=== PATIENT | male | born 1970 | race Asian ===

== ENCOUNTER 2018-10-18 20:40 | Inpatient (IN) | payer MEDICAID ==
[2018-10-18] MEDS ORDERED: Sodium Chloride 0.9% 1,000 ML IV ONE ×2 (20:48→21:48)
--- NOTE | 2018-10-18 20:56 | ED Physician Chart ---
ED Chief Complaint/HPI - Patient Information Date Seen:: 10/18/18 Time Seen:: 20:40 Chief Complaint:: Palpitations History of Present Illness:: onset x one day of palpitations, anxiousness, and nervousness; pt denies trauma , LOC, ALOC, AMS, H/As, S/T, neck pain, cough, C/P, SOB, Abd. Pain, A/N/V/D/C, fever, chills, or urinary s/s Allergies:: Allergies Allergy/AdvReac Type Severity Reaction Status Date / Time No Known Allergies Allergy Verified 10/18/18 20:50 Historian:: Patient, EMS Review:: Nurse's Note Reviewed, Old Chart Reviewed, EMS run form Reviewed ED Review of Systems - Review of Systems General/Constitutional: No fever, No chills, No weight loss, No weakness, No diaphoresis, No edema, No loss of appetite Skin: No skin lesions, No rash, No bruising Head: No headache, No light-headedness Eyes: No loss of vision, No pain, No diplopia ENT: No earache, No nasal drainage, No sore throat, No tinnitus Neck: No neck pain, No swelling, No thyromegaly, No stiffness, No mass noted Cardio Vascular: No chest pain, Palpitations, No PND, No orthopnea, No edema Pulmonary: No SOB, No cough, No sputum, No wheezing GI: No nausea, No vomiting, No diarrhea, No pain, No melena, No hematochezia, No constipation, No hematemesis G/U: No dysuria, No frequency, No hematuria, No nacturia Musculoskeletal: No bone or joint pain, No back pain, No muscle pain Endocrine: No polyuria, No polydipsia Psychiatric: Prior psych history, No depression, Anxiety, No suicidal ideation, No homicidal ideation, No auditory hallucination, No visual hallucination Hematopoietic: No bruising, No lymphadenopathy Allergic/Immuno: No urticaria, No angioedema Neurological: No syncope, No focal symptoms, No weakness, No paresthesia, No headache, No seizure, No dizziness, No confusion, No vertigo ED Past Medical History - Past Medical History Obtainable: Yes Past Medical History: No significant medical hx Family History: HTN Social History: Non Smoker, No Alcohol, Illicit Drug Use, Single, Homeless Surgical History: None Psychiatricy History: Bipolar Medication: Reviewed Family Medical History - Family Member Father History Unknown: Yes ED Physical Exam - Physical Examination General/Constitutional: Awake, Well-developed, well-nourished, Alert, No distress, GCS 15, Non-toxic appearing, Ambulatory Head: Atraumatic Eyes: Lids, conjuctiva normal, PERRL, EOMI Skin: Nl inspection, No rash, No skin lesions, No ecchymosis, Well hydrated, No lymphadenopathy ENMT: External ears, nose nl, TM canals nl, Nasal exam nl, Lips, teeth, gums nl , Oropharynx nl, Tonsils nl Neck: Nontender, Full ROM w/o pain, No JVD, No nuchal rigidity, No bruit, No mass, No stridor Respiratory: Nl effort/Exclusion, Clear to Auscultation, No Wheeze/Rhonchi/Rales Cardio Vascular: RRR, No murmur, gallop, rubs, NL S1 S2, Carotid/Femoral/Distal pulses equal bilaterally GI: No tenderness/rebounding/guarding, No organomegaly, No hernia, Normal BS's, Nondistended, No mass/bruits, No McBurney tenderness : No CVA tenderness Extremities: No tenderness or effusion, Full ROM, normal strength in all extremities, No edema, Normal digits & nails Neuro/Psych: Alert/oriented, DTR's symmetric, Normal sensory exam, Normal motor strength, Judgement/insight normal, Mood normal, Normal gait, No focal deficits Misc: Normal back, No paraspinal tenderness ED Labs/Radiology/EKG Results - Lab Results Results: Laboratory Tests 10/18/18 20:48 POC Glucose 148 H Comments:: Reviewed - Radiology Results Comments:: NAD - EKG Interpretations EKG Time:: 22:12 Rate & Rhythm: 124; ST Comments:: T-Wave inversions; non-specific st-t changes ED Septic Shock - . Is Septic Shock (SBP<90, OR Lactate>4 mmol\L) present?: No ED Reassessment (Disposition) - Reassessment Reassessment Condition:: Improved - Diagnosis Diagnosis:: Anxiety Reaction; Dehydration; Palpitations; Tachycardia; Myocardial Ischemia; Substance Abuse; Cardiac Arrythmias; Lactic Acidosis; UTI; Sepsis; Leukocytosis - Aftercare/Follow up Instructions Aftercare/Follow-Up Instructions:: Counseled pt regarding lab results/diagnosis & need follow up, Counseled pt & family regarding lab results/diagnosis & need follow up - Patient Disposition Discharge/Transfer:: Acute Care w/in this hosp Accepting Physician:: Dr. Johnson Time Called:: 2199 Time Responded:: 22:00 Admitted to:: ICU Spoke to:: Dr. Johnson Admitting Medical Physician:: Dr. Johnson Condition at Disposition:: Stable, Improved
[2018-10-18] MEDS ORDERED: Aspirin 81mg Chewable Tab PO STA (21:00)
[2018-10-18 21:08] LABS: BASOPHILE ABSOLUTE 0.1 Th/cumm (0-0.2); EOSINOPHILE ABSOLUTE 0.1 Th/cmm (0.1-0.4); HEMATOCRIT 42.3 % (41.0-60); HEMOGLOBIN 13.7 gm/dL (12-16); LYMPHOCYTE ABSOLUTE 0.8 Th/cmm (1.5-3.0); MEAN CELL VOLUME 77.9 fl (80-99); MEAN CORPUSCULAR HEMOGLOBIN 25.2 pg (26.0-30.0); MEAN CORPUSCULAR HGB CONC 32.3 pg (28.0-36.0); MEAN PLATELET VOLUME 6.7 fl; MONOCYTE ABSOLUTE 0.4 Th/cmm (0.3-1.0); NEUTROPHILE ABSOLUTE 18.1 Th/cmm (1.8-8.0); PLATELET COUNT 429 Th/cmm (150-400); RED BLOOD COUNT 5.43 Mil/cmm (4.30-5.70); RED CELL DISTRIBUTION WIDTH 13.2 % (11.5-20.0)
[2018-10-18] MEDS ORDERED: Aspirin 81mg Chewable Tab ONE (21:11)
[2018-10-18 21:15] LABS: WHITE BLOOD COUNT 19.5 Th/cmm (4.8-10.8)
[2018-10-18 21:22] LABS: INR 0.99 (0.5-1.4); PROTHROMBIN TIME (TEST) 10.3 SECONDS (9.5-11.5)
[2018-10-18 21:25] LABS: BAND NEUTROPHILE 4 % (0-10); LYMPHOCYTE 3 % (20-50); MONOCYTE 3 % (2-10); NEUTROPHILS 90 % (40-80)
[2018-10-18 21:28] LABS: ALB/GLOB RATIO 1.5 (1.0-1.8); ALBUMIN 4.8 gm/dL (4.2-5.5); ANION GAP 21.6 (7.0-16.0); BILIRUBIN,TOTAL 0.6 mg/dL (0.3-1.0); CALCIUM SERUM 10.3 mg/dL (8.6-10.3); CARBON DIOXIDE 18.2 mEq/L (21.0-31.0); CREATININE - SERUM 2.6 mg/dL (0.7-1.3); GFR AFRICAN-AMERICAN 34.3 ml/min (>90); GFR NON AFRICAN-AMERICAN 28.4 ml/min; POTASSIUM SERUM 3.8 mEq/L (3.5-5.1); TOTAL PROTEIN,SERUM 8.1 gm/dL (6.0-8.3)
[2018-10-18 21:29] LABS: AMYLASE SERUM < 10 U/L (29-103); LIPASE 37 U/L (11-82)
[2018-10-18 21:30] LABS: ACETAMINOPHEN < 10.0 ug/mL (10.0-30.0)
[2018-10-18 21:35] LABS: SALICYLATES (ASPIRIN) < 25.0 mg/L (30.0-100.0)
[2018-10-18] MEDS ORDERED: cefTRIAXone 1 GM in Sodium Chloride 0.9% 50 ML IV ONE (21:47)
[2018-10-18 21:52] LABS: URINE SOURCE RANDOM
[2018-10-18 21:55] LABS: URINE BILIRUBIN NEGATIVE (NEGATIVE); URINE BLOOD LARGE (NEGATIVE); URINE GLUCOSE (UA) NEGATIVE (NEGATIVE); URINE KETONE NEGATIVE (NEGATIVE); URINE LEUKOCYTE ESTERASE NEGATIVE (NEGATIVE); URINE MICROSCOPIC INDICATED? YES; URINE NITRATE NEGATIVE (NEGATIVE); URINE PROTEIN >=300 mg/dL (NEGATIVE); URINE UROBILINOGEN 0.2 E.U./dL (0.2 - 1.0)
[2018-10-18 21:56] LABS: URINE CLARITY CLEAR (CLEAR); URINE COLOR YELLOW
[2018-10-18 22:03] LABS: URINE BACTERIA 2+ /hpf (NONE SEEN); URINE EPITHELIAL CELLS FEW /lpf (FEW)
[2018-10-18 22:16] LABS: AMPHETAMINE URINE POSITIVE (NEGATIVE); BARBITURATES URINE NEGATIVE (NEGATIVE); COCAINE METABOLITE QUAL URINE NEGATIVE (NEGATIVE); METHAMPHETAMINES QUAL URINE POSITIVE (NEGATIVE); OPIATES (MORPHINE) QUAL. URINE NEGATIVE (NEGATIVE); PHENCYCLIDINE (PCP) URINE NEGATIVE (NEGATIVE); TRICYCLICS (TCA) QUAL. URINE NEGATIVE (NEGATIVE)
[2018-10-18 22:17] LABS: BENZODIAZEPINES QUAL URINE NEGATIVE (NEGATIVE); CANNABINOID THC NEGATIVE (NEGATIVE); METHADONE URINE NEGATIVE (NEGATIVE)
[2018-10-19] MEDS ORDERED: D5-0.45NS 1,000 ML IV SCH (01:45)
[2018-10-19 07:12] LABS: % BASOPHILS 0.3 % (0.0-2.0); % EOSINOPHILS 0.3 % (0.0-5.0); % LYMPHOCYTES 8.8 % (20.0-50.0); % MONOCYTES 4.4 % (2.0-10.0); % NEUTROPHILS 86.2 % (40.0-80.0); HEMATOCRIT 39.8 % (41.0-60); HEMOGLOBIN 13.1 gm/dL (12-16); LYMPHOCYTE ABSOLUTE 1.2 Th/cmm (1.5-3.0); MEAN CELL VOLUME 77.8 fl (80-99); MEAN CORPUSCULAR HEMOGLOBIN 25.6 pg (26.0-30.0); MEAN CORPUSCULAR HGB CONC 32.9 pg (28.0-36.0); MEAN PLATELET VOLUME 7.1 fl; MONOCYTE ABSOLUTE 0.6 Th/cmm (0.3-1.0); NEUTROPHILE ABSOLUTE 11.8 Th/cmm (1.8-8.0); PLATELET COUNT 373 Th/cmm (150-400); RED BLOOD COUNT 5.12 Mil/cmm (4.30-5.70); RED CELL DISTRIBUTION WIDTH 13.1 % (11.5-20.0)
[2018-10-19 07:20] LABS: WHITE BLOOD COUNT 13.6 Th/cmm (4.8-10.8)
[2018-10-19 07:33] LABS: ANION GAP 13.5 (7.0-16.0); BUN - UREA NITROGEN 27 mg/dL (7-25); CALCIUM SERUM 9.6 mg/dL (8.6-10.3); CARBON DIOXIDE 24.9 mEq/L (21.0-31.0); CHLORIDE 105 mEq/L (98-107); CHOLESTEROL 185 mg/dL (<200); CREATININE - SERUM 1.3 mg/dL (0.7-1.3); GFR AFRICAN-AMERICAN > 60.0 ml/min (>90); GFR NON AFRICAN-AMERICAN > 60.0 ml/min; GLUCOSE 104 mg/dL (70-105); HDL -HIGH DENSITY LIPOPROTEIN 68 mg/dL (23-92); POTASSIUM SERUM 3.4 mEq/L (3.5-5.1); SODIUM SERUM 140 mEq/L (136-145); TRIGLYCERIDES 50 mg/dL (<150)
--- NOTE | 2018-10-19 09:14 | Diagnostic Imaging Report ---
CHEST X-RAY: AP view INDICATION: pain COMPARISON: None FINDINGS: Suboptimal lung volume is are noted. There is no focal consolidation or pleural effusions The heart is upper limits of normal in size. The osseous structures demonstrate no acute abnormalities. IMPRESSION: Suboptimal lung volumes. No focal consolidation identified.
--- NOTE | 2018-10-19 13:02 | Consultation ---
Consult Note - Consult Note Service Date: 10/19/18 Referring Physician: Alexis Johnson Consult Note: PHYSICIAN Consultation Note: Date of Admission: 10/19/18 Purpose of Consultation: Sepsis Chief Complaint: Patient NABIL ROMERO was admitted to [facility] Telemetry with SEPSIS,ALOC,SUBSTANCE ABUSE RELATED PALPATATIONS. History of Present Illness: 48 y/o make w/ h/o change in mental status. On initial evaluation, his temperature was 97.5 F and WBC count was 19,500. creatinine was 2.6. UA showed hematuria and bacteriuria. Sepsis was diagnosed and started on IVF and ceftriaxone. Overall, he has been improving. Past Medical History: drug abuse. Allergies Allergy/AdvReac Type Severity Reaction Status Date / Time No Known Allergies Allergy Verified 10/18/18 20:50 Vital Signs Temp 96.8 F 10/19/18 08:18 Pulse 113 10/19/18 08:18 Resp 18 10/19/18 08:18 BP 163/121 10/19/18 08:18 Pulse Ox 98 10/19/18 08:18 Intake & Output 10/18/18 10/19/18 10/19/18 18:59 06:59 18:59 Intake Total 4100 600 Output Total 650 Balance 3450 600 Weight (lbs) 80.399 kg 80.399 kg Intake: Intake, IV Amount 4100 Sodium Chloride 0.9% 1, 1000 000 ml @ Wide Open IV . Q0M ONE Rx#:[id number] Sodium Chloride 0.9% 1, 1000 000 ml @ Wide Open IV . Q0M ONE Rx#:[id number] cefTRIAXone 1 gm In 50 Sodium Chloride 0.9% 50 ml @ 100 mls/hr IV X1 ONE Rx#:[id number] Oral 600 Output: Urine 650 Other: # Voids 2 3 # Bowel Movements 1 Weight Source Bedscale Bedscale Laboratory Results - last 24 hr 10/18/18 10/18/18 10/18/18 20:48 21:00 21:00 WBC 19.5 H RBC 5.43 Hgb 13.7 Hct 42.3 MCV 77.9 L MCH 25.2 L MCHC Differential 32.3 RDW 13.2 Plt Count 429 H MPV 6.7 Add Manual Diff YES Neutrophils % Band Neutrophils % 4 Lymphocytes % Monocytes % Eosinophils % Basophils % Neutrophils (Manual) 90 H Lymphocytes 3 L Monocytes 3 Microcytosis 1+ PT 10.3 INR 0.99 Sodium Potassium Chloride Carbon Dioxide Anion Gap BUN Creatinine Est GFR ( Amer) Est GFR (Non-Af Amer) BUN/Creatinine Ratio Glucose POC Glucose 148 H Whole Bld Lactic Acid Calcium Total Bilirubin AST ALT Alkaline Phosphatase Creatine Kinase CK-MB (CK-2) Troponin I B-Natriuretic Peptide Total Protein Albumin Globulin Albumin/Globulin Ratio Triglycerides Cholesterol LDL Cholesterol Direct HDL Cholesterol Amylase Lipase TSH Urine Source Urine Color Urine Clarity Urine pH Ur Specific [place] Urine Protein Urine Glucose (UA) Urine Ketones Urine Blood Urine Nitrate Urine Bilirubin Urine Urobilinogen Ur Leukocyte Esterase Urine RBC Urine WBC Ur Epithelial Cells Urine Bacteria Fine Granular Casts Salicylates Urine Opiates Screen Urine Methadone Screen Acetaminophen Ur Barbiturates Screen Ur Tricyclics Screen Ur Phencyclidine Scrn Amphetamines Screen U Methamphetamines Scrn U Benzodiazepines Scrn U Cocaine Metab Screen U Cannabinoids Screen Ethyl Alcohol 10/18/18 10/18/18 10/18/18 21:00 21:00 21:00 WBC RBC Hgb Hct MCV MCH MCHC Differential RDW Plt Count MPV Add Manual Diff Neutrophils % Band Neutrophils % Lymphocytes % Monocytes % Eosinophils % Basophils % Neutrophils (Manual) Lymphocytes Monocytes Microcytosis PT INR Sodium 143 Potassium 3.8 Chloride 107 Carbon Dioxide 18.2 L Anion Gap 21.6 H BUN 36 H Creatinine 2.6 H Est GFR ( Amer) 34.3 Est GFR (Non-Af Amer) 28.4 BUN/Creatinine Ratio 13.8 Glucose 155 H POC Glucose Whole Bld Lactic Acid Calcium 10.3 Total Bilirubin 0.6 AST 48 H ALT 25 Alkaline Phosphatase 55 Creatine Kinase 1597 H CK-MB (CK-2) 35.6 H Troponin I 1.27 H* D B-Natriuretic Peptide 60.0 Total Protein 8.1 Albumin 4.8 Globulin 3.3 Albumin/Globulin Ratio 1.5 Triglycerides 54 Cholesterol 218 H LDL Cholesterol Direct 147 HDL Cholesterol 81 Amylase Lipase TSH Urine Source Urine Color Urine Clarity Urine pH Ur Specific [place] Urine Protein Urine Glucose (UA) Urine Ketones Urine Blood Urine Nitrate Urine Bilirubin Urine Urobilinogen Ur Leukocyte Esterase Urine RBC Urine WBC Ur Epithelial Cells Urine Bacteria Fine Granular Casts Salicylates Urine Opiates Screen Urine Methadone Screen Acetaminophen Ur Barbiturates Screen Ur Tricyclics Screen Ur Phencyclidine Scrn Amphetamines Screen U Methamphetamines Scrn U Benzodiazepines Scrn U Cocaine Metab Screen U Cannabinoids Screen Ethyl Alcohol 10/18/18 10/18/18 10/18/18 21:00 21:00 21:00 WBC RBC Hgb Hct MCV MCH MCHC Differential RDW Plt Count MPV Add Manual Diff Neutrophils % Band Neutrophils % Lymphocytes % Monocytes % Eosinophils % Basophils % Neutrophils (Manual) Lymphocytes Monocytes Microcytosis PT INR Sodium Potassium Chloride Carbon Dioxide Anion Gap BUN Creatinine Est GFR ( Amer) Est GFR (Non-Af Amer) BUN/Creatinine Ratio Glucose POC Glucose Whole Bld Lactic Acid Calcium Total Bilirubin AST ALT Alkaline Phosphatase Creatine Kinase CK-MB (CK-2) Troponin I B-Natriuretic Peptide Total Protein Albumin Globulin Albumin/Globulin Ratio Triglycerides Cholesterol LDL Cholesterol Direct HDL Cholesterol Amylase < 10 L Lipase 37 TSH 1.88 Urine Source Urine Color Urine Clarity Urine pH Ur Specific [place] Urine Protein Urine Glucose (UA) Urine Ketones Urine Blood Urine Nitrate Urine Bilirubin Urine Urobilinogen Ur Leukocyte Esterase Urine RBC Urine WBC Ur Epithelial Cells Urine Bacteria Fine Granular Casts Salicylates Urine Opiates Screen Urine Methadone Screen Acetaminophen Ur Barbiturates Screen Ur Tricyclics Screen Ur Phencyclidine Scrn Amphetamines Screen U Methamphetamines Scrn U Benzodiazepines Scrn U Cocaine Metab Screen U Cannabinoids Screen Ethyl Alcohol < 10 10/18/18 10/18/18 10/18/18 21:00 21:00 21:35 WBC RBC Hgb Hct MCV MCH MCHC Differential RDW Plt Count MPV Add Manual Diff Neutrophils % Band Neutrophils % Lymphocytes % Monocytes % Eosinophils % Basophils % Neutrophils (Manual) Lymphocytes Monocytes Microcytosis PT INR Sodium Potassium Chloride Carbon Dioxide Anion Gap BUN Creatinine Est GFR ( Amer) Est GFR (Non-Af Amer) BUN/Creatinine Ratio Glucose POC Glucose Whole Bld Lactic Acid 4.60 H* Calcium Total Bilirubin AST ALT Alkaline Phosphatase Creatine Kinase CK-MB (CK-2) Troponin I B-Natriuretic Peptide Total Protein Albumin Globulin Albumin/Globulin Ratio Triglycerides Cholesterol LDL Cholesterol Direct HDL Cholesterol Amylase Lipase TSH Urine Source RANDOM Urine Color YELLOW Urine Clarity CLEAR Urine pH 6.0 Ur Specific [place] >= 1.030 Urine Protein >=300 Urine Glucose (UA) NEGATIVE Urine Ketones NEGATIVE Urine Blood LARGE H Urine Nitrate NEGATIVE Urine Bilirubin NEGATIVE Urine Urobilinogen 0.2 Ur Leukocyte Esterase NEGATIVE Urine RBC 5-10 H Urine WBC 2-5 Ur Epithelial Cells FEW Urine Bacteria 2+ H Fine Granular Casts 2-5 H Salicylates < 25.0 L Urine Opiates Screen Urine Methadone Screen Acetaminophen < 10.0 L Ur Barbiturates Screen Ur Tricyclics Screen Ur Phencyclidine Scrn Amphetamines Screen U Methamphetamines Scrn U Benzodiazepines Scrn U Cocaine Metab Screen U Cannabinoids Screen Ethyl Alcohol 10/18/18 10/18/18 10/19/18 21:35 23:00 06:30 WBC 13.6 H D RBC 5.12 Hgb 13.1 Hct 39.8 L MCV 77.8 L MCH 25.6 L MCHC Differential 32.9 RDW 13.1 Plt Count 373 MPV 7.1 Add Manual Diff Neutrophils % 86.2 H Band Neutrophils % Lymphocytes % 8.8 L Monocytes % 4.4 Eosinophils % 0.3 Basophils % 0.3 Neutrophils (Manual) Lymphocytes Monocytes Microcytosis PT INR Sodium Potassium Chloride Carbon Dioxide Anion Gap BUN Creatinine Est GFR ( Amer) Est GFR (Non-Af Amer) BUN/Creatinine Ratio Glucose POC Glucose Whole Bld Lactic Acid 2.65 H* Calcium Total Bilirubin AST ALT Alkaline Phosphatase Creatine Kinase CK-MB (CK-2) Troponin I B-Natriuretic Peptide Total Protein Albumin Globulin Albumin/Globulin Ratio Triglycerides Cholesterol LDL Cholesterol Direct HDL Cholesterol Amylase Lipase TSH Urine Source Urine Color Urine Clarity Urine pH Ur Specific [place] Urine Protein Urine Glucose (UA) Urine Ketones Urine Blood Urine Nitrate Urine Bilirubin Urine Urobilinogen Ur Leukocyte Esterase Urine RBC Urine WBC Ur Epithelial Cells Urine Bacteria Fine Granular Casts Salicylates Urine Opiates Screen NEGATIVE Urine Methadone Screen NEGATIVE Acetaminophen Ur Barbiturates Screen NEGATIVE Ur Tricyclics Screen NEGATIVE Ur Phencyclidine Scrn NEGATIVE Amphetamines Screen POSITIVE H U Methamphetamines Scrn POSITIVE H U Benzodiazepines Scrn NEGATIVE U Cocaine Metab Screen NEGATIVE U Cannabinoids Screen NEGATIVE Ethyl Alcohol 10/19/18 10/19/18 10/19/18 06:30 06:30 06:30 WBC RBC Hgb Hct MCV MCH MCHC Differential RDW Plt Count MPV Add Manual Diff Neutrophils % Band Neutrophils % Lymphocytes % Monocytes % Eosinophils % Basophils % Neutrophils (Manual) Lymphocytes Monocytes Microcytosis PT INR Sodium 140 Potassium 3.4 L Chloride 105 Carbon Dioxide 24.9 Anion Gap 13.5 BUN 27 H Creatinine 1.3 Est GFR ( Amer) > 60.0 Est GFR (Non-Af Amer) > 60.0 BUN/Creatinine Ratio 20.8 Glucose 104 POC Glucose Whole Bld Lactic Acid Calcium 9.6 Total Bilirubin AST ALT Alkaline Phosphatase Creatine Kinase Cancelled CK-MB (CK-2) Troponin I 1.04 H* D B-Natriuretic Peptide Total Protein Albumin Globulin Albumin/Globulin Ratio Triglycerides 50 Cholesterol 185 LDL Cholesterol Direct 120 HDL Cholesterol 68 Amylase Lipase TSH 2.06 Urine Source Urine Color Urine Clarity Urine pH Ur Specific [place] Urine Protein Urine Glucose (UA) Urine Ketones Urine Blood Urine Nitrate Urine Bilirubin Urine Urobilinogen Ur Leukocyte Esterase Urine RBC Urine WBC Ur Epithelial Cells Urine Bacteria Fine Granular Casts Salicylates Urine Opiates Screen Urine Methadone Screen Acetaminophen Ur Barbiturates Screen Ur Tricyclics Screen Ur Phencyclidine Scrn Amphetamines Screen U Methamphetamines Scrn U Benzodiazepines Scrn U Cocaine Metab Screen U Cannabinoids Screen Ethyl Alcohol 10/19/18 06:30 WBC RBC Hgb Hct MCV MCH MCHC Differential RDW Plt Count MPV Add Manual Diff Neutrophils % Band Neutrophils % Lymphocytes % Monocytes % Eosinophils % Basophils % Neutrophils (Manual) Lymphocytes Monocytes Microcytosis PT INR Sodium Potassium Chloride Carbon Dioxide Anion Gap BUN Creatinine Est GFR ( Amer) Est GFR (Non-Af Amer) BUN/Creatinine Ratio Glucose POC Glucose Whole Bld Lactic Acid Calcium Total Bilirubin AST ALT Alkaline Phosphatase Creatine Kinase 9175 H CK-MB (CK-2) 132.4 H Troponin I B-Natriuretic Peptide Total Protein Albumin Globulin Albumin/Globulin Ratio Triglycerides Cholesterol LDL Cholesterol Direct HDL Cholesterol Amylase Lipase TSH Urine Source Urine Color Urine Clarity Urine pH Ur Specific [place] Urine Protein Urine Glucose (UA) Urine Ketones Urine Blood Urine Nitrate Urine Bilirubin Urine Urobilinogen Ur Leukocyte Esterase Urine RBC Urine WBC Ur Epithelial Cells Urine Bacteria Fine Granular Casts Salicylates Urine Opiates Screen Urine Methadone Screen Acetaminophen Ur Barbiturates Screen Ur Tricyclics Screen Ur Phencyclidine Scrn Amphetamines Screen U Methamphetamines Scrn U Benzodiazepines Scrn U Cocaine Metab Screen U Cannabinoids Screen Ethyl Alcohol Home Medication Medication Instructions Recorded Type NK 02/12/14 History Current Medications Generic Name Dose Route Start Last Admin Trade Name Freq PRN Reason Stop Dose Admin Ceftriaxone Sodium 1 gm/ 50 mls @ 100 mls/hr 10/19/18 22:00 Sodium Chloride IV 12/18/18 21:59 Q24HR KATLYN Dextrose/Sodium Chloride 1,000 mls @ 50 mls/hr 10/19/18 01:45 10/19/18 02:47 D5-0.45ns IV 12/18/18 01:44 50 mls/hr .Q20H KATLYN Administration Lorazepam 1 mg 10/18/18 21:00 10/18/18 21:14 Ativan IVP 12/17/18 20:59 1 mg Q4HR PRN Administration Agitation Protocol Lorazepam 1 mg 10/19/18 01:35 Ativan IVP 12/18/18 01:34 Q4HR PRN Anxiety Protocol Review of Systems: A 12 point ROS was reviewed with the pertinent positive and negatives noted in the HPI. Social History Homeless. positive h/o drug abuse. No alcohol. no smoking. Family Medical History HTN. Physical Exam: General: Comfortable, not in any acute distress. HEENT: Head: NC NT. oral cavity moist, pink tongue. Eye: no pallor, no icterus. Pupil PERRLA. EOMI. face symmetrical. Neck: Supple, no JVD. Cardio: S1, S2 WNL. Respiratory: CTAP. Abdominal: Soft NT ND BS + Genital/Urinary: Deferred. Extremities: NCCE. Neurological: AAOx3. Assessment: 1. Leukocytosis, likely reactive. R/o sepsis. 2. SHALONDA improving. 3. hematuria. 4. UTI/ 5. Substance abuse. Plan: Continue rocephin, can be changed to levaquin 250 mg po daily for 5 more days. Renal US if not done. Thank you, Dr Johnson for involving me in taking care of this patient. Addendum: Patient signed AMA, so further w/u was could not be done. Signed, Avni Chambers M.D. [id number]
[2018-10-19] MEDS ORDERED: cefTRIAXone 1 GM in Sodium Chloride 0.9% 50 ML IV SCH (22:00)
== END 2018-10-19 13:20 | disposition left against medical advice (07) | DRG 720 ==
LOC: ER 20:40 → TELE 10-19 00:01
PROVIDERS: ADMIT Internal Medicine; ATTEND Internal Medicine
DX: A41.9 Sepsis, unspecified organism (principal); N17.9 Acute kidney failure, unspecified; E86.0 Dehydration; F41.9 Anxiety disorder, unspecified; N39.0 Urinary tract infection, site not specified; I25.9 Chronic ischemic heart disease, unspecified; F19.10 Other psychoactive substance abuse, uncomplicated; R31.9 Hematuria, unspecified; Z53.21 Procedure and treatment not carried out due to patient leaving prior to being seen by health care provider; Z82.49 Family history of ischemic heart disease and other diseases of the circulatory system; Z59.0 Homelessness
CPT/HCPCS: 36415-UA; 71045-TC; 80048-TC; 80053-TC; 80061-TC; 80307; 80320-TC; 80329-TC; 81001-TC; 82150-TC; 82550-TC; 82553; 82948-90; 83605; 83690-TC; 83880-TC; 84443-TC; 84484-TC; 85007-TC; 85025-TC; 85610-TC; 86592-TC; 87086-90; 93005; 96375; J0696; J2060; J7030; Z7610

== ENCOUNTER 2018-11-15 01:55 | Emergency (ER) | payer MEDICAID ==
--- NOTE | 2018-11-15 02:27 | ED Physician Chart ---
ED Chief Complaint/HPI - Patient Information Date Seen:: 11/15/18 Time Seen:: 02:23 Chief Complaint:: Rashes History of Present Illness:: 48 yo homeless male had itchy rashes on the lower abdomen for 2 years. He used permethrin which had minimal results. Allergies:: Allergies Allergy/AdvReac Type Severity Reaction Status Date / Time No Known Allergies Allergy Verified 10/18/18 20:50 Vitals:: Vital Signs - 8 hr 11/15/18 02:00 Temp 97.1 F HR 71 RR 20 BP 138/80 O2 Sat % 100 ED Review of Systems - Review of Systems General/Constitutional: No fever Skin: Skin lesions Head: No headache Eyes: No pain ENT: No nasal drainage Neck: No neck pain Cardio Vascular: No chest pain Pulmonary: No SOB GI: No nausea, No vomiting Musculoskeletal: No bone or joint pain Neurological: No focal symptoms ED Past Medical History - Past Medical History Past Medical History: Other (scabies) Social History: Non Smoker, No Alcohol, No Drug Use Psychiatricy History: Schizophrenia Family Medical History - Family Member Father History Unknown: Yes ED Physical Exam - Physical Examination General/Constitutional: Awake, Alert Head: Atraumatic Eyes: PERRL, EOMI ENMT: Nasal exam nl Neck: No nuchal rigidity Respiratory: Clear to Auscultation, No Wheeze/Rhonchi/Rales Cardio Vascular: RRR, No murmur, gallop, rubs, NL S1 S2 Other GI comments:: Lower quadrant abdomen yellow vesicular lesions with curst and itchiness. Extremities: normal strength in all extremities Neuro/Psych: Normal motor strength ED Assessment - Assessment General Assessment: Abdominal eczema Assessment/Comments:: Fluocinonide topical D/c home F/u PCP or return to ER if symptoms worsen ED Septic Shock - . Is Septic Shock (SBP<90, OR Lactate>4 mmol\L) present?: No - <6hrs of presentation: Vital Signs: Vital Signs - 8 hr 11/15/18 02:00 Temp 97.1 F HR 71 RR 20 BP 138/80 O2 Sat % 100 ED Reassessment (Disposition) - Reassessment Reassessment Condition:: Improved - Aftercare/Follow up Instructions Medication Prescribed:: Fluocinonide topical oint 0.05%, topically apply, bid, total 30g - Patient Disposition Discharge/Transfer:: Home
== END 2018-11-15 02:40 | disposition home or self-care (01) ==
LOC: ER 01:55
DX: L30.9 Dermatitis, unspecified (principal); F20.9 Schizophrenia, unspecified; Z59.0 Homelessness
CPT/HCPCS: Z7502